=== PATIENT | male | born 1970 | race Caucasian/White ===

== ENCOUNTER 2017-01-08 21:52 | Emergency (ER) | payer SELFPAY ==
[2017-01-08 21:59] VITALS: O2SAT 95
[2017-01-08 22:42] LABS: % IMMATURE GRANULYOCYTES 0.3 % (0.0-1.1); ABSOLUTE IMMATURE GRANULOCYTES 0.03 10^3/uL (0.00-0.10); ADD DIFF? NO; ADD MORPH? NO; ADD SCAN? NO; ATYPICAL LYMPHOCYTE FLAG 20 (0-99); FRAGMENT RBC FLAG 0 (0-99); HEMATOCRIT 44.5 % (40.0-51.0); HEMOGLOBIN 15.2 g/dL (13.7-17.5); LEFT SHIFT FLG 0 (0-99); LIPEMIA HEMOLYSIS FLAG 90 (0-99); MEAN CELL HEMOGLOBIN 29.6 pg (27.9-34.1); MEAN CELL HEMOGLOBIN CONCENTR. 34.2 g/dL (32.4-36.7); MEAN CELL VOLUME 86.6 fL (81.5-99.8); MEAN PLATELET VOLUME 10.3 fL (8.7-11.7); PLATELET CLUMPS FLAG 0 (0-99); PLATELET COUNT 272 10^3/uL (150-400); RED BLOOD CELL COUNT 5.14 10^6/uL (4.40-6.38); RED CELL DISTRIBUTION WIDTH 12.3 % (11.5-15.2)
[2017-01-08 22:49] LABS: ANION GAP 10 mEq/L (8-16); CALCIUM 9.3 mg/dL (8.5-10.4); CARBON DIOXIDE 21 mEq/l (22-31); CHLORIDE 111 mEq/L (97-110); CREATININE 0.8 mg/dL (0.7-1.3); ETHANOL SERUM < 10 mg/dL (0-10); GLOMERULAR FILTRATION RATE > 60; GLUCOSE 86 mg/dL (70-100); SODIUM 142 mEq/L (134-144)
--- NOTE | 2017-01-08 23:33 | EDPHY ---
H & P Smoking Status: Current every day smoker Time Seen by Provider: 01/08/17 22:10 HPI/ROS: CHIEF COMPLAINT: M1 hold, suicidal HISTORY OF PRESENT ILLNESS: 46-year-old male on M1 hold presents feeling suicidal. His plan is to jump off a bridge. The patient presented to the [facility] and spoke with [facility] and he was advised to call EMS for transport to the hospital since he was feeling suicidal. The patient has no physical complaints. He denies chest pain or difficulty breathing. Denies abdominal pain. Has a history of bipolar and stop this medication on his own about 2 months ago. He is new to [place] has only been here for the last 1 day. Denies substance abuse or alcohol. REVIEW OF SYSTEMS: Constitutional: No fever, no chills. Eyes: No double or blurry vision. ENT: No sore throat. Respiratory: No cough, no shortness of breath. Cardiac: No chest pain. Gastrointestinal: No abdominal pain, vomiting or diarrhea. Genitourinary: No dysuria. Musculoskeletal: No neck or back pain. Skin: No rashes. Neurological: No headache. (Eliana Villalpando) Past Medical/Surgical History: Bipolar (Eliana Villalpando) Social History: Homeless from [place] (Eliana Villalpando ) Physical Exam: General Appearance: Alert, no distress. Vital signs are stable. Eyes: Pupils equal and round. Extraocular motions are all intact. ENT: Mouth: Mucous membranes moist. Respiratory: No wheezing, rhonchi, or rales, lungs are clear to auscultation. Cardiovascular: Regular rate and rhythm. Gastrointestinal: Abdomen is soft and nontender, no masses, no rebound or guarding, bowel sounds normal. Neurological: Alert and oriented x 3, cranial nerves II through XII grossly intact Skin: Warm and dry, no rashes. Musculoskeletal: Nontender to palpate along the cervical, thoracic or lumbar spine. Neck is supple. Extremities: Full range of motion and no peripheral edema. Psychiatric: Patient is oriented X 3, there is no agitation. (Eliana Villalpando) Constitutional: Initial Vital Signs Temperature (C) 36.9 C 01/08/17 21:55 Heart Rate 80 01/08/17 21:55 Respiratory Rate 16 01/08/17 21:55 Blood Pressure 115/76 01/08/17 21:55 O2 Sat (%) 95 01/08/17 21:55 O2 Delivery Mode Room Air Allergies/Adverse Reactions: haloperidol [From Haldol] Allergy (Verified 01/08/17 21:55) risperidone [From Risperdal] Allergy (Verified 01/08/17 21:55) Home Medications: Medication Instructions Recorded NK [No Known Home Meds] 01/08/17 Medical Decision Making ED Course/Re-evaluation: 46-year-old male on M1 hold with history of bipolar off medication for 2 months presents feeling depressed and suicidal. The patient has been medically cleared and is awaiting mental health evaluation. (Eliana Villalpando) 1:40 a.m. the patient has been evaluated by [facility] they will begin looking for placement. (Oh Solomon) Differential Diagnosis: Depression including functional and major depression, situational depression, medication side effect, drugs and alcohol abuse. (Eliana Villalpando) Other Provider: Care assumed from Dr. Solomon at 7:00 a.m.. The patient will be transferred to [facility] for inpatient psychiatric hospital bed not available at this facility, in stable condition; accepting physician is Dr. Gallardo. (Bart Dumont) Care Turn Over: Care will be turned over to Dr. Solomon at change of shift for disposition and plan. (Eliana Villalpando) - Data Points Laboratory Results: Laboratory Results 01/08/17 22:30 01/08/17 22:30 01/09/17 07:39 POC Glucose 101 mg/dL H mg/dL (70-100) Point of Care Test Results: 01/09/17 07:39 POC Glucose 101 H Departure - Departure Disposition: Other Psych, Not [place] Clinical Impression: Suicidal ideation, Bipolar disorder Condition: Good Referrals: NONE *PRIMARY CARE P,. [Primary Care Provider] - As per Instructions
[2017-01-09 10:33] VITALS: BP 102/60; PULSE 85; RESP 18; TEMP 98.6
== END 2017-01-09 10:48 ==
DX: R45.851 Suicidal ideations (principal); F31.9 Bipolar disorder, unspecified; F17.200 Nicotine dependence, unspecified, uncomplicated
CPT/HCPCS: 80305; G0480

== ENCOUNTER 2017-02-08 13:13 | Emergency (ER) | payer SELFPAY ==
[2017-02-08 13:25] VITALS: TEMP 97.7; O2SAT 96
--- NOTE | 2017-02-08 14:13 | EDPHY ---
H & P Stated Complaint: States he is diab,appt Fri @ [facility] to start meds. Feels like BGL is high Time Seen by Provider: 02/08/17 14:02 - Personal History Current Tetanus Diphtheria and Acellular Pertussis (TDAP): Yes - Medical/Surgical History Hx Asthma: No Hx Chronic Respiratory Disease: No Hx Diabetes: Yes Hx Cardiac Disease: No Hx Renal Disease: No Hx Cirrhosis: No Hx Alcoholism: No Hx HIV/AIDS: No Hx Splenectomy or Spleen Trauma: No Other PMH: PSHx: denies. PMHx: diabetes type II (not on meds) bipolar, schizophrenia, depression, marilou, ETOH [id number] - Social History Smoking Status: Current every day smoker Constitutional: Initial Vital Signs Temperature (C) 36.5 C 02/08/17 13:15 Heart Rate 63 02/08/17 13:15 Respiratory Rate 16 02/08/17 13:15 Blood Pressure 128/69 H 02/08/17 13:15 O2 Sat (%) 96 02/08/17 13:15 O2 Delivery Mode Nasal Cannula Allergies/Adverse Reactions: haloperidol [From Haldol] Allergy (Severe, Verified 02/08/17 13:20) tongue swells up risperidone [From Risperdal] Allergy (Severe, Verified 02/08/17 13:20) tongue swells up Home Medications: Medication Instructions Recorded FLUoxetine [PROzac] 20 mg PO 02/08/17 Meclizine HCl 25 mg PO QID PRN #14 tablet 02/08/17 lamoTRIgine [LamICTAL 100 MG (*)] 100 mg PO 02/08/17 Medical Decision Making ED Course/Re-evaluation: CHIEF COMPLAINT: Lightheadedness HISTORY OF PRESENT ILLNESS: This patient is a 46 year old male with history of type II diabetes complaining of dizziness and lightheadedness onset two or three days ago. He states he discontinued his Metformin, and is now feeling "like his blood sugar is off". He would like to be evaluated for this. He denies fever, chills, chest pain, shortness of breath, or other associated symptoms. REVIEW OF SYSTEMS: A 10 point review of systems was performed and is negative with the exception of the elements mentioned in the history of present illness. PHYSICAL EXAM: General Appearance: Alert, well hydrated, appropriate, and non-toxic appearing. Head: Atraumatic without scalp tenderness or obvious injury Neck: Supple, non-tender, no lymphadenopathy. Respiratory: No retractions, no distress, no wheezes, and no accessory muscle use. Cardiovascular: Regular rate and rhythm. Good capillary refill all extremities. Gastrointestinal: Abdomen is soft, non-tender, non-distended. Musculoskeletal: Normal active ROM of all extremities, atraumatic. Neurological: Alert, appropriate, and interactive. Nonfocal neuro exam. Skin: No rashes, good turgor, no nodules on palpation. PAST MEDICAL HISTORY: Type II Diabetes (formerly on Metformin). PAST SURGICAL HISTORY: Noncontributory SOCIAL HISTORY: Recently moved to [place] from [place], [place]. DIFFERENTIAL DIAGNOSIS: The differential diagnosis for the patient's dizziness included but was not limited to peripheral and central causes of vertigo, orthostatic causes including dehydration, cardiogenic and neurogenic causes, and blood loss. MEDICAL DECISION MAKING: This patient is a 46 year old male with history of type II diabetes, currently uncontrolled by medication, presenting with three day history of dizziness. Plan for labs to assess BGL and other processes. BGL 89, within normal limits. The patient is scheduled to follow up with [facility] for management of his medication regimen. Plan to discharge in good condition with prescription for Meclizine and instruction to follow up with primary care or with ENT for symptoms unresolved. The patient is comfortable with this plan. - Data Points Laboratory Results: 02/08/17 14:06 POC Hgb 15.6 gm/dL gm/dL (13.7-17.5) POC Hct 46 % % (40-51) POC Sodium 143 mEq/L mEq/L (134-144) POC Potassium 3.9 mEq/L mEq/L (3.3-5.0) POC Chloride 105 mEq/L mEq/L (97-110) POC BUN 16 mg/dL mg/dL (7-23) POC Creatinine 0.9 mg/dL mg/dL (0.7-1.3) POC Glucose 89 mg/dL mg/dL (70-100) Point of Care Test Results: 02/08/17 14:06 POC Sodium 143 POC Potassium 3.9 POC Chloride 105 POC BUN 16 POC Creatinine 0.9 POC Glucose 89 Departure - Departure Disposition: Home, Routine, Self-Care Clinical Impression: BPPV (benign paroxysmal positional vertigo) Qualifiers: Laterality: unspecified laterality Qualified Code(s): H81.10 - Benign paroxysmal vertigo, unspecified ear Condition: Good Instructions: Benign Paroxysmal Positional Vertigo (ED), Dizziness (ED) Additional Instructions: 1. Take Meclizine as prescribed four times daily as needed for dizziness. 2. Follow up at the [facility] as scheduled for discussion of your medication regimen and symptoms. 3. Follow up with an ear, nose, and throat doctor for symptoms unresolved in the next week. We have referred you to our ENT doctor subcontract manager. 4. Return if you develop fainting, chest pain, vomiting, or other worsening of condition. Referrals: Sonia Brady MD [Medical Doctor] - As per Instructions [facility],. [Clinic] - As per Instructions Prescriptions: Meclizine HCl 25 mg PO QID PRN #14 tablet PRN Reason: Dizziness Report Scribed for: Kendall Kwan Report Scribed by: Soraya Saravia Date of Report: 02/08/17 Time of Report: 14:21
[2017-02-08 14:40] VITALS: BP 118/76; PULSE 76; RESP 18
== END 2017-02-08 14:40 | disposition home or self-care (01) ==
DX: H81.10 Benign paroxysmal vertigo, unspecified ear (principal); E11.9 Type 2 diabetes mellitus without complications; F17.200 Nicotine dependence, unspecified, uncomplicated
CPT/HCPCS: 82947-QW

== ENCOUNTER 2018-10-22 15:19 | Emergency (ER) | payer MEDICAID ==
--- NOTE | 2018-10-22 16:32 | EDPHY ---
General Time Seen by Provider: 10/22/18 16:10 Narrative: CLINICAL IMPRESSION: iNFLUENZA A ASSESSMENT/PLAN: 48-year-old male with a history of mental health illness presents to the emergency department 3 days of influenza like symptoms. Vital signs stable, afebrile, no hypoxia, tachypnea or tachycardia. No clinical signs of bacterial upper or lower respiratory disease. No respiratory distress. Influenza a positive. Patient has declined Tamiflu. Encouraged PCP follow-up and supportive at home care. Warning signs return to ED sooner alignment discharge. DIFFERENTIAL DX: Differential includes but not limited to influenza, influenza like syndrome, pharyngitis, bronchitis ED PROCEDURES: See lab and/or imaging results below ED COURSE: Influenza test ordered, pending at this time. CHIEF COMPLAINT: Flu-like symptoms HPI: 48-year-old otherwise healthy male presents to the emergency department with 3 days complaints of flu-like symptoms including congestion, runny nose, sore throat, body aches and subjective fever. He has been taking [id number] cough and cold medication. No underlying asthma or cardiopulmonary history. He is followed by [facility]. PAST MEDICAL HISTORY: Mental health history See triage summary and nurse notes for addition applicable history Pertinent Past Surgical History: None reported Family History: Noncontributory Social History: Regular smoker REVIEW OF SYSTEMS: A full 10 point review of systems was negative except for those mentioned in HPI. PHYSICAL EXAM: General Appearance: Alert, oriented, appropriate, cooperative, NAD, well hydrated, non-toxic appearing, VSS, no hypoxia. HEENT: TMs are clear bilaterally no perforation or FB, no injection, no evidence of serous or mucopurulent otitis. Oropharynx clear is no erythema or exudates, no tonsillar hypertrophy or asymmetry. Dentition without abnormality. Eyes: PERRLA, no acute vision change, nystagmus, swelling, discharge, pain or photosensitivity. Conjunctiva pink, no pallor or injection Neck: Supple, nontender, no lymphadenopathy, no midline pain, FROM, no meningismus. Respiratory: There are no retractions, lungs are clear to auscultation. Cardiac: Regular rate and rhythm, no murmurs or gallops. Skin: Warm, dry, no rashes, no nodules on palpation. MEDICAL DECISION MAKING: Patient was seen independently. Secondary supervising physician at time of evaluation was: Dr. Dumont. Diagnosis: Influenza A. New, requires workup Summary: See Assessment and Plan for summary of ED visit Clinical lab tests: ordered / reviewed. Patient Progress: Stable for discharge. - History Smoking Status: Current every day smoker - Objective Vital Signs: Initial Vital Signs Temperature (C) 36.9 C 10/22/18 15:21 Heart Rate 84 10/22/18 15:21 Respiratory Rate 16 10/22/18 15:21 Blood Pressure 108/75 10/22/18 15:21 O2 Sat (%) 96 10/22/18 15:21 O2 Delivery Mode Room Air Allergies/Adverse Reactions: haloperidol [From Haldol] Allergy (Severe, Verified 02/08/17 13:20) tongue swells up risperidone [From Risperdal] Allergy (Severe, Verified 02/08/17 13:20) tongue swells up Home Medications: Medication Instructions Recorded lamoTRIgine [LamICTAL 100 MG (*)] 100 mg PO 02/08/17 [place] 10/22/18 Laboratory Results: 10/22/18 15:51 Nasal Influenza A PCR FLU A DETECTED H (NEGATIVE) Nasal Influenza B PCR NEGATIVE FOR FLU B (NEGATIVE) Departure - Departure Disposition: Home, Routine, Self-Care Clinical Impression: Influenza-like illness Condition: Good Instructions: Viral Syndrome (ED) Additional Instructions: DISCHARGE INSTRUCTIONS FROM YOUR DOCTOR Thank you for visiting our emergency department today. You were treated by a physician recruitment and outreach assistant today and your case was reviewed with our ED Attending physician. Please keep in mind that discharge from the emergency department does not mean that there is nothing wrong - it simply means that we have not identified an emergency condition that requires further evaluation or treatment in the hospital. You should always plan to follow up with primary care for re- evaluation of your condition in the next 2-3 days. If you have been referred to a specialist, please call as soon as possible (today or tomorrow) to schedule your follow up appointment at the appropriate time. FLU TEST WAS POSITIVE. THIS IS VIRAL AND NO ANTIBIOTICS ARE NEEDED. GIVEN YOU ARE SYMPTOMATIC X 3 DAYS, TAMIFLU WILL LIKELY NOT BENEFIT YOU. PLEASE FOLLOW-UP WITH PRIMARY CARE. STAY HYDRATED, GET PLENTY OF REST, USE TYLENOL AND IBUPROFEN IF NEEDED. RETURN TO TO EMERGENCY DEPARTMENT FOR WORSENING SYMPTOMS OR ANY OTHER CONCERNS. People present with illnesses and injuries in different ways, and it is always possible that we have missed something. You may always return for re-evaluation if symptoms worsen or if they are not improving or if you develop new/different symptoms. Again, thank you for choosing our emergency department. We hope that you feel better. Referrals: NONE *PRIMARY CARE P,. [Primary Care Provider] - As per Instructions [facility],. [Clinic] - 1-2 days without fail
[2018-10-22 16:50] VITALS: BP 119/79
== END 2018-10-22 16:49 | disposition home or self-care (01) ==
DX: J10.1 Influenza due to other identified influenza virus with other respiratory manifestations (principal)